=== PATIENT | female | born 1965 | race Caucasian/White ===

== ENCOUNTER 2017-05-24 16:23 | Emergency (ER) | payer OTHER ==
[~2017-05-24] VITALS: Ht 160 cm; Wt 88.6 kg
[~2017-05-24 16:23] MED LIST: ALBU8.5H IH; ARIP2 PO; ASPI-1093 PO; ASPI-556 PO; BUSP10TA23 PO; CACARB500 PO; DOCU250C91 PO; DOXE50 PO; ESOM20CA31 PO; GABA-531 PO; LEVE500T53 PO; LEVO75 PO; LEVO75TA4 PO; LITH300C3 PO; METO25 PO; METO50 PO; SENN-161 PO; SIMV-260 PO; VENL-68 PO; VENL50TA44 PO; VITAD1000 PO; ZOLP5 PO
[2017-05-24 16:37] LABS: GLUCOSE,POINT OF CARE 109 MG/DL (70-110)
[2017-05-24 18:49] VITALS: BP 139/84
== END 2017-05-24 19:21 | disposition home or self-care (01) ==
LOC: EMS 16:24
DX: M25.572 Pain in left ankle and joints of left foot (principal); I11.0 Hypertensive heart disease with heart failure; I50.9 Heart failure, unspecified; J45.909 Unspecified asthma, uncomplicated; E78.00 Pure hypercholesterolemia, unspecified; E03.9 Hypothyroidism, unspecified; Z79.82 Long term (current) use of aspirin; Z95.1 Presence of aortocoronary bypass graft; Z98.61 Coronary angioplasty status; Z88.1 Allergy status to other antibiotic agents; Z88.5 Allergy status to narcotic agent; Z88.2 Allergy status to sulfonamides; Z88.8 Allergy status to other drugs, medicaments and biological substances
CPT/HCPCS: 29515; 82962; 99284